=== PATIENT | male | born 1975 | race Caucasian/White ===

== ENCOUNTER 2025-04-08 23:12 | Emergency (ER) | payer SELFPAY ==
[~2025-04-08] VITALS: Ht 180.3 cm; Wt 127.0 kg
[2025-04-08 23:16] VITALS: BP 134/82; PULSE 115; RESP 20; TEMP 36.9; O2SAT 98
== END 2025-04-08 23:38 | disposition left against medical advice (07) ==
LOC: ER 23:32
DX: F10.129 Alcohol abuse with intoxication, unspecified (principal); Y90.9 Presence of alcohol in blood, level not specified; Z53.21 Procedure and treatment not carried out due to patient leaving prior to being seen by health care provider